=== PATIENT | male | born 1950 | race Caucasian/White ===

== ENCOUNTER → 2017-07-20 | Outpatient (CLI) | payer OTHER | END | disposition home or self-care (01) | DX: R26.2 Difficulty in walking, not elsewhere classified (principal); M25.562 Pain in left knee; M25.662 Stiffness of left knee, not elsewhere classified; Z74.1 Need for assistance with personal care; M17.12 Unilateral primary osteoarthritis, left knee | CPT/HCPCS: 97150 GO; 97161 GP; 97165 GO; 97530 GP; G8978 GP; G8979 GP; G8980 GP; G8987 GO; G8988 GO; G8989 GO ==

== ENCOUNTER 2017-08-15 21:01 | Inpatient (IN) | payer OTHER ==
[~2017-08-15] VITALS: Ht 177.8 cm; Wt 136.2 kg
[~2017-08-15 21:01] MED LIST: HYGROTON25 MG PO
[2017-08-16 06:12] VITALS: BP 155/87
[2017-08-16 16:30] VITALS: BP 162/80
[2017-08-16 19:53] VITALS: BP 145/80
[2017-08-17 00:15] VITALS: BP 131/74
[2017-08-17 04:00] VITALS: BP 135/75
[2017-08-17 05:58] LABS: HEMATOCRIT 41.9 % (38.0-50.0); HEMOGLOBIN 14.2 G/DL (12.5-16.6); MCV 89.3 FL (86-99)
[2017-08-17 06:21] LABS: CHLORIDE 97 MEQ/L (99-109); CREATININE 0.8 MG/DL (0.6-1.3); GFR ESTIMATE (CALCULATED) > 59 mL/min/ (58.99-99999); GLUCOSE 137 mg/dL (70-99); SODIUM 136 MEQ/L (136-147); UREA NITROGEN (BUN) 12 mg/dL (9-23)
[2017-08-17 06:23] LABS: POTASSIUM 3.2 MEQ/L (3.7-5.4)
[2017-08-17 08:19] VITALS: BP 178/71
[2017-08-17 12:09] VITALS: BP 166/86
[2017-08-17 15:35] VITALS: BP 132/74
[2017-08-17 20:05] VITALS: BP 151/81
[2017-08-18 00:12] VITALS: BP 164/82
[2017-08-18 04:15] VITALS: BP 143/78
[2017-08-18 06:20] LABS: HEMATOCRIT 39.2 % (38.0-50.0); HEMOGLOBIN 13.1 G/DL (12.5-16.6); MCV 87.9 FL (86-99)
[2017-08-18 06:53] LABS: CHLORIDE 96 MEQ/L (99-109); CREATININE 0.6 MG/DL (0.6-1.3); GFR ESTIMATE (CALCULATED) > 59 mL/min/ (58.99-99999); GLUCOSE 110 mg/dL (70-99); POTASSIUM 3.5 MEQ/L (3.7-5.4); SODIUM 133 MEQ/L (136-147); UREA NITROGEN (BUN) 12 mg/dL (9-23)
[2017-08-18 08:23] VITALS: BP 149/81
[2017-08-18 16:13] VITALS: BP 145/76
[2017-08-18 20:07] VITALS: BP 139/74
[2017-08-19 00:05] VITALS: BP 149/69
[2017-08-19 05:56] LABS: CHLORIDE 95 MEQ/L (99-109); CREATININE 0.6 MG/DL (0.6-1.3); GFR ESTIMATE (CALCULATED) > 59 mL/min/ (58.99-99999); GLUCOSE 111 mg/dL (70-99); POTASSIUM 3.8 MEQ/L (3.7-5.4); SODIUM 132 MEQ/L (136-147); UREA NITROGEN (BUN) 17 mg/dL (9-23)
[2017-08-19 08:05] VITALS: BP 122/71
[2017-08-19] MEDS ORDERED: ENDOCET 5-3251 EACH PO (11:07)
[2017-08-19] MEDS ORDERED: SODIUM CHLORIDE1 G1 PO (11:07)
[2017-08-19] MEDS ORDERED: ELIQUIS2.5 MG PO (11:07)
[2017-08-19] MEDS ORDERED: OXYCONTIN10 MG PO (11:07)
[2017-08-19 12:07] VITALS: BP 128/70
== END 2017-08-19 16:36 | DRG 470 ==
LOC: ENRESERV 21:01 → 2SOUTH 08-16 05:13 → 3WEST 08-16 16:01
PROVIDERS: Orthopaedic Surgery; Physician Assistant
PROC: 0SRD0J9 Replacement of Left Knee Joint with Synthetic Substitute, Cemented, Open Approach (ICD-10-PCS; principal; 2017-08-16)
DX: M17.12 Unilateral primary osteoarthritis, left knee (principal); E87.1 Hypo-osmolality and hyponatremia; I10 Essential (primary) hypertension; F17.220 Nicotine dependence, chewing tobacco, uncomplicated; E87.6 Hypokalemia
CPT/HCPCS: 71045; 80048; 85014; 85018; C1713; J0690; J1885; J2250; J3010; J7050; J7120; S0020